=== PATIENT | male | born 1995 | race Caucasian/White ===

== ENCOUNTER 2017-02-16 12:23 | Emergency (ER) | payer SELFPAY ==
[2017-02-16 12:32] VITALS: BP 106/64
[2017-02-16] MEDS ORDERED: BUPIVACAINE HCL 0.5 % INJ/PF 30 ML SDV INJ ONE (12:41)
[2017-02-16] MEDS ORDERED: LIDOCAINE 2% VISCOUS SOLN 20 ML UDCUP PO ONE (12:49)
--- NOTE | 2017-02-16 12:50 | ER Document Report ---
HPI - HPI Pain Level: 5 Notes: Patient is a 19-year-old male who presents the ED complaining of right lower molar #31 pain/fracture that occurred this morning when he was eating a granola bar. Patient states that since then he has had some pain or discomfort without any radiation of the pain. Patient states that he is still able to swallow and breathe without any difficulties. He has not noticed any purulent or bloody discharge. Patient states that he does not have any more insurance so he cannot get seen by a dentist at this time. Denies any headache, fever, URI, sore throat, chest pain, palpitations, syncope, cough, shortness of breath, wheeze, dyspnea, abdominal pain, nausea/vomiting/diarrhea, or rash. - ROS Notes: REVIEW OF SYSTEMS: CONSTITUTIONAL : Denies fever, chills, or sweats. Denies recent illness. EENT: see hpi CARDIOVASCULAR: Denies chest pain. Denies palpitations or racing or irregular heart beat. Denies ankle edema. RESPIRATORY: Denies cough, cold, or chest congestion. Denies shortness of breath, difficulty breathing, or wheezing. GASTROINTESTINAL: Denies abdominal pain or distention. Denies nausea, vomiting , or diarrhea. Denies blood in vomitus, stools, or per rectum. Denies black, tarry stools. Denies constipation. GENITOURINARY: Denies difficulty urinating, painful urination, burning, frequency, blood in urine, or discharge. MUSCULOSKELETAL: Denies back or neck pain or stiffness. Denies joint pain or swelling. SKIN: Denies rash, lesions or sores. NEUROLOGICAL: Denies confusion or altered mental status. Denies passing out or loss of consciousness. Denies dizziness or lightheadedness. Denies headache. Denies weakness or paralysis or loss of use of either side. Denies problems with gait or speech. Denies sensory loss, numbness, or tingling. ALL OTHER SYSTEMS REVIEWED AND NEGATIVE. Dictation was performed using [employer] voice recognition software - CARDIOVASCULAR Cardiovascular: DENIES: Chest pain - DERM Skin Color: Normal Past Medical History - Social History Smoking Status: Current Every Day Smoker Family History: Reviewed & Not Pertinent Patient has suicidal ideation: No Patient has homicidal ideation: No Renal/ Medical History: Denies: Hx Peritoneal Dialysis Musculoskeltal Medical History: Reports Hx Musculoskeletal Deformity, Reports Hx Musculoskeletal Trauma Psychiatric Medical History: Reports: Hx Attention Deficit Hyperactivity Disorder, Hx Bipolar Disorder, Hx Schizophrenia Traumatic Medical History: Reports: Hx Fractures - Right ankle, boxer fracture to right hand, left forearm - Immunizations Immunizations up to date: Yes Hx Diphtheria, Pertussis, Tetanus Vaccination: Yes - 09/24/2006 Vertical Provider Document - CONSTITUTIONAL Agree With Documented VS: Yes Notes: PHYSICAL EXAMINATION: GENERAL: Well-appearing, well-nourished and in no acute distress. HEAD: Atraumatic, normocephalic. EYES: Pupils equal round and reactive to light, extraocular movements intact, sclera anicteric, conjunctiva are normal. ENT: EAC clear b/l. TM's intact b/l without erythema, fluid, or perforation. Nares patent and without discharge. oropharynx clear without exudates. No tonsilar hypertrophy or erythema. Moist mucous membranes. No sinus tenderness. Uvula midline. No palatine shift. No facial swelling. Mouth: + fracture to #31. No abscess or discharge noted. No swelling. No tongue protrusion. NECK: Normal range of motion, supple without lymphadenopathy. No rigidity/ meningismus. LUNGS: Breath sounds clear to auscultation bilaterally and equal. No wheezes rales or rhonchi. HEART: Regular rate and rhythm without murmurs, rubs, gallops. NEUROLOGICAL: Cranial nerves grossly intact. Normal speech, normal gait. Normal sensory, motor exams PSYCH: Normal mood, normal affect. SKIN: Warm, Dry, normal turgor, no rashes or lesions noted. - INFECTION CONTROL TRAVEL OUTSIDE OF THE [place]S. IN LAST 30 DAYS: No - RESPIRATORY O2 Sat by Pulse Oximetry: 97 Course - Re-evaluation Re-evalutation: 02/16/17 12:53 Patient is an afebrile, well-hydrated, 21-year-old male who presents the ED with a fractured tooth #31. Vitals are stable. PE otherwise unremarkable. Patient declined dental block at this time. We will give him viscous lidocaine today and send him home with the rest that he may use as needed. Recommend he moss picker a dental repair kit [id number] and schedule an appoint with a dentist this week. Conservative measures otherwise as needed. Recheck with your PCM this week as well. Return to the ED with any worsening/concerning symptoms otherwise as reviewed discharge. Patient is in agreement. Low suspicion for any meningitis, sepsis, peritonsillar/pharyngeal abscess, respiratory compromise, Kalia's, temporal arteritis, or other emergent systemic condition at this time. Patient is aware this condition can change from initial presentation and he needs to monitor symptoms closely. - Vital Signs Vital signs: Temp Pulse Resp BP Pulse Ox 97.8 F 79 16 106/64 97 02/16/17 12:29 02/16/17 12:29 02/16/17 12:29 02/16/17 12:29 02/16/17 12:29 Discharge - Discharge Clinical Impression: Toothache Condition: Stable Disposition: HOME, SELF-CARE Additional Instructions: Wall and floss twice daily Maintain fluid intake Take antibiotics as directed Mouthwash, salt water gargles, peroxide rinse as needed Tylenol/ibuprofen as needed Recheck with PCM this week Call today/tomorrow and schedule an appointment with your dentist for further evaluation Return to the ED with any worsening symptoms and/or development of fever, headache, facial swelling, swelling of lips/tongue/throat, trouble swallowing, drooling, hoarseness, neck pain/stiffness, chest pain, palpitations, syncope, shortness of breath, trouble breathing, abdominal pain, n/v/d, numbness/tingling , or other worsening symptoms that are concerning to you. TOOTHACHE: Your pain is due to dental decay. The tooth must be repaired in order for you to feel better. You will, therefore, be referred to a dentist. We do not have dentists on the staff at [facility]. Severe swelling or drainage around a tooth usually means a dental abscess. This also requires evaluation and treatment by the dentist, but antibiotics may be prescribed while awaiting dental treatment. You should be rechecked immediately if you develop major swelling of the face, increasing pain, a lump in the jaw or gums, headache, difficulty swallowing, or fever. PENICILLIN V K: You have been given a prescription for Penicillin VK. Your physician has determined that this is the best antibiotic for your condition. Pen VK can be taken with meals, however more of the antibiotic gets into the bloodstream if it's taken on an empty stomach. Penicillin usually has no side effects. However, allergy to penicillins is common. If you have had an allergic reaction to any drug of the penicillin family, you should never take any other penicillin. Notify your doctor at once if you develop hives, itching, swelling, faintness, or shortness of breath. FOLLOW-UP CARE: You have been referred for follow-up care to the dentists listed below. Call the dentists office for an appointment as you were instructed or within the next two days. If you experience worsening or a significant change in your symptoms, notify the physician immediately or return to the Emergency Department at any time for re-evaluation. [facility] [address] [place], [place] Monday mornings, by appointment [facility] [address] [place] [address] [facility] [address] [facility] [address] [facility] Emergency Department [facility] [address] [email or web address] [address] [place] [address] Monday- 8:00am to 5:00 pm Will see patients from other [facility]. Charges based on income and family size and accepts Medicare, Medicaid, and Insurances Will pull molars [facility] [address] Hours of Operation 8:00 am - 4:30 pm weekdays The following dental offices accept Medicaid: [facility] Dr. Goldman Dr. Keen Dr. Lundberg Dr. Reed Robert Nguyen, Brenda, and Hernandez oral surgery Dr. Richards ([place]) Dr. Casiano ([place]) [facility] Drs. Leyva and Erik ([place]) Dr. Batres ([place]) [facility] Dr. Ashby ([place]) Drs. Rivera and ([place]) Medicaid Care Line Prescriptions: Penicillin V Potassium [Penicillin Vk 500 mg Tablet] 500 mg PO BID #20 tablet Forms: Smoking Cessation Education Referrals: [facility] [Provider Group] - Follow up in 1 week
--- NOTE | 2017-02-16 14:56 | ER Document Report ---
ED General - General Chief Complaint: Toothache Stated Complaint: TOOTHACHE Time Seen by Provider: 02/16/17 12:33 Mode of Arrival: Ambulatory Information source: Patient TRAVEL OUTSIDE OF THE [place] IN LAST 30 DAYS: No - Related Data Allergies/Adverse Reactions: tramadol [Tramadol] Allergy (Verified 12/01/15 23:21) Past Medical History - Social History Family History: Reviewed & Not Pertinent Patient has suicidal ideation: No Patient has homicidal ideation: No Renal/ Medical History: Denies: Hx Peritoneal Dialysis Musculoskeltal Medical History: Reports Hx Musculoskeletal Deformity, Reports Hx Musculoskeletal Trauma Psychiatric Medical History: Reports: Hx Attention Deficit Hyperactivity Disorder, Hx Bipolar Disorder, Hx Schizophrenia Traumatic Medical History: Reports: Hx Fractures - Right ankle, boxer fracture to right hand, left forearm - Immunizations Immunizations up to date: Yes Hx Diphtheria, Pertussis, Tetanus Vaccination: Yes - 09/24/2006 Physical Exam - Vital signs Vitals: Temp Pulse Resp BP Pulse Ox 97.8 F 79 16 106/64 97 02/16/17 12:29 02/16/17 12:29 02/16/17 12:29 02/16/17 12:29 02/16/17 12:29 Course - Vital Signs Vital signs: Temp Pulse Resp BP Pulse Ox 97.8 F 79 16 106/64 97 02/16/17 12:29 02/16/17 12:29 02/16/17 12:29 02/16/17 12:29 02/16/17 12:29
== END 2017-02-16 13:06 | disposition home or self-care (01) ==
LOC: ER 12:23
DX: K08.89 Other specified disorders of teeth and supporting structures (principal); F17.200 Nicotine dependence, unspecified, uncomplicated
CPT/HCPCS: 99282; J3490

== ENCOUNTER 2017-03-02 19:10 | Emergency (ER) | payer OTHER ==
--- NOTE | 2017-03-02 20:33 | ER Document Report ---
ED Medical Screen (RME) - General Chief Complaint: EYE TRAUMA Stated Complaint: RIGHT EYE INJURY Time Seen by Provider: 03/02/17 20:32 Notes: Patient states that approximately noon today a nail flew up and down stop of a couple of objects and then hit him in the right eye. He states initially he could see normally out of the eye. He states as the day went on the eye became more painful and swollen and now he can only see shadows with this time. On exam pupils are seen to be equally round and reactive. Extraocular muscles are intact. Patient has normal accommodation. TRAVEL OUTSIDE OF THE [place] IN LAST 30 DAYS: No - Related Data Allergies/Adverse Reactions: tramadol [Tramadol] Allergy (Verified 12/01/15 23:21) Past Medical History Renal/ Medical History: Denies: Hx Peritoneal Dialysis Musculoskeltal Medical History: Reports Hx Musculoskeletal Deformity, Reports Hx Musculoskeletal Trauma Psychiatric Medical History: Reports: Hx Attention Deficit Hyperactivity Disorder, Hx Bipolar Disorder, Hx Schizophrenia Traumatic Medical History: Reports: Hx Fractures - Right ankle, boxer fracture to right hand, left forearm - Immunizations Immunizations up to date: Yes Hx Diphtheria, Pertussis, Tetanus Vaccination: Yes - 09/24/2006 Physical Exam - Vital signs Vitals: Temp Pulse Resp BP Pulse Ox 97.8 F 71 20 115/72 100 03/02/17 20:11 03/02/17 20:11 03/02/17 20:11 03/02/17 20:11 03/02/17 20:11 Course - Vital Signs Vital signs: Temp Pulse Resp BP Pulse Ox 97.8 F 71 20 115/72 100 03/02/17 20:11 03/02/17 20:11 03/02/17 20:11 03/02/17 20:11 03/02/17 20:11
--- NOTE | 2017-03-02 20:57 | ER Document Report ---
ED Eye Complaint - General TRAVEL OUTSIDE OF THE [place].S[place] IN LAST 30 DAYS: No - General Chief Complaint: Eye Injury Stated Complaint: RIGHT EYE INJURY Time Seen by Provider: 03/02/17 20:32 Notes: Patient is a 21-year-old male comes emergency department for chief complaint of right eye pain. He states that he was hammering vinyl and struck a brick underneath the vinyl, causing the nail he was hammering to fly back and strike him in the right eye. He states initially he had blurry vision and pain but this has worsened and now he feels that he can only c-collar out of the right eye. He states he thinks a little bit of blood came out of his eye as well. He denies any other injuries. He does not wear visual correction. He states he is up-to-date on his tetanus within 3 years. He denies any daily medications. (SAM SAINI) - Related Data Allergies/Adverse Reactions: tramadol [Tramadol] Allergy (Verified 12/01/15 23:21) Past Medical History - General Information source: Patient - Social History Smoking Status: Never Smoker Drug Abuse: None Lives with: Family Family History: Reviewed & Not Pertinent Patient has suicidal ideation: No Patient has homicidal ideation: No Renal/ Medical History: Denies: Hx Peritoneal Dialysis Musculoskeltal Medical History: Reports Hx Musculoskeletal Deformity, Reports Hx Musculoskeletal Trauma Psychiatric Medical History: Reports: Hx Attention Deficit Hyperactivity Disorder, Hx Bipolar Disorder, Hx Schizophrenia Traumatic Medical History: Reports: Hx Fractures - Right ankle, boxer fracture to right hand, left forearm Surgical Hx: Negative - Immunizations Immunizations up to date: Yes Hx Diphtheria, Pertussis, Tetanus Vaccination: Yes - 09/24/2006 Review of Systems - Review of Systems Constitutional: No symptoms reported EENT: See HPI Cardiovascular: No symptoms reported Respiratory: No symptoms reported Gastrointestinal: No symptoms reported Genitourinary: No symptoms reported Male Genitourinary: No symptoms reported Musculoskeletal: No symptoms reported Skin: No symptoms reported Hematologic/Lymphatic: No symptoms reported Neurological/Psychological: No symptoms reported Physical Exam - Vital signs Interpretation: Normal - General General appearance: Other - Patient holding his hand over his right eye, however he does not appear to be in distress - HEENT Head: Normocephalic, Atraumatic Eyes: Other - Mild swelling of the eyelids of the right eye Conjunctiva: Normal Cornea: Normal, Other - Small amount of fluorescein uptake in the sclera adjacent to the cornea, no abnormalities noted with the cornea. No: Corneal abrasion, Corneal ulcer, Dendrite, Embedded foreign body, Flourescein stain uptake, Opacified, Superficial foreign body Extraocular movements intact: Yes Eyelashes: Normal Pupils: PERRL Corrective lenses worn: No Anterior chamber: Normal. No: Hyphema Nerve palsy: No Visual rizvi normal: Yes Ears: Normal Sinus: Normal Nasal: Normal Mouth/Lips: Normal Mucous membranes: Normal Pharynx: Normal Neck: Normal - Respiratory Respiratory status: No respiratory distress Chest status: Nontender Breath sounds: Normal. No: Decreased air movement, Wheezing Chest palpation: Normal - Cardiovascular Rhythm: Regular. No: Tachycardia Heart sounds: Normal auscultation, S1 appreciated, S2 appreciated Murmur: No - Abdominal Inspection: Normal Distension: No distension Bowel sounds: Normal Tenderness: Nontender. No: Tender, Guarding Organomegaly: No organomegaly - Back Back: Normal. No: Tender - Extremities General upper extremity: Normal inspection, Nontender, Normal ROM, Normal strength General lower extremity: Normal inspection, Nontender, Normal ROM, Normal strength - Neurological Neuro grossly intact: Yes Cognition: Normal Orientation: AAOx4 Thom Coma Scale Eye Opening: Spontaneous [place] Coma Scale Verbal: Oriented [place] Coma Scale Motor: Obeys Commands Thom Coma Scale Total: 15 Speech: Normal Motor strength normal: LUE, RUE, LLE, RLE Sensory: Normal - Psychological Associated symptoms: Normal affect, Normal mood - Skin Skin Temperature: Warm Skin Moisture: Dry Skin Color: Normal - Vital signs Vitals: Temp Pulse Resp BP Pulse Ox 97.8 F 71 20 115/72 100 03/02/17 20:11 03/02/17 20:11 03/02/17 20:11 03/02/17 20:11 03/02/17 20:11 Course - Re-evaluation Re-evalutation: 03/02/17 22:51 Patient was initially seen by the physician's professional nursing assistant, Sam Saini. Patient was hammering a nail actually came up and hit him in the right eye. He therefore did fluorescein staining as well as check pressures under the slit lamp examination. Patient does have a abrasion over the conjunctival without Anusha sign. There is no sign of globe rupture. The only concern is that he continues to have blurred vision in the right eye. I therefore did a bedside ultrasound which was normal. I also did a slit-lamp examination myself and saw no evidence of globe rupture. Pupils normal in size. I do not see a hyphema. I will have him free on to call the tierce filler director utilization management to discuss with them close follow-up versus other treatment options. Dictation of this chart was performed using voice recognition software; therefore, there may be some unintended grammatical errors. (COLE BARKER) Patient has normal EOMs, visual rizvi are intact, he states he cannot see anything but color but actually describes what he is seeing to me while he is repeating this. For example he was telling me that the gloves in the room are blue. He does have puffy eyelids and clear discharge. No bleeding noted. No evidence of globe disruption. No hyphema. On fluorescein staining of the I do see a tiny abrasion over the right sclera, examination of the cornea is normal, no foreign bodies under the eyelids or embedded, normal anterior chamber, normal pupil. I did check pressures and the pressure in the right eye is not significantly different from the left and the pressure is 19 with 95% confidence. Patient does not appear to be in distress. I did ask Dr. Barker to come to the bedside, he performed an ultrasound and evaluated the eye under slit lamp with no additional concerning findings. He recommends ophthalmology consult. Spoke with Dr. Ortiz, Ophthalmology at [facility]. He recommends that because patient does not have change in pigment over the cornea or sclera, he has normal pressure, he has a normal pupil, and he has no hyphema that he is cleared to follow-up with ophthalmology tomorrow. Patient also given antibiotic eyedrop. He states we can perform an x-ray but this is optional ( looking for foreign body). I recommended the x-ray to the patient but he declined. Patient referred to local ophthalmology to follow-up tomorrow, given antibiotic eyedrops, discussed return precautions. Patient and relatives state understanding and agreement. (SAM SAINI) - Vital Signs Vital signs: Temp Pulse Resp BP Pulse Ox 97.7 F 75 18 121/79 97 03/02/17 23:49 03/02/17 23:49 03/02/17 23:49 03/02/17 23:49 03/02/17 23:49 Discharge - Discharge Clinical Impression: Right eye injury Qualifiers: Encounter type: initial encounter Qualified Code(s): S05.91XA - Unspecified injury of right eye and orbit, initial encounter Condition: Stable Disposition: HOME, SELF-CARE Additional Instructions: Exam shows a very small abrasion to the sclera, the white part of your eye, no other abnormalities are seen. Recommendation is for you to follow-up tomorrow with ophthalmology, see referral. Return immediately if you develop any concerning symptoms including loss of vision, swelling of the eye, discolored discharge, or any other concerning symptoms. Apply ointment to the eye 6 times a day for 7 days. Forms: Return to Work Referrals: MORGAN SOSA MD [ACTIVE STAFF] - 03/03/17
[2017-03-02] MEDS ORDERED: POLYMYXIN B SULFATE/TMP OPH SOLN 10 ML OD ONE (22:28)
[2017-03-02] MEDS ORDERED: HYDROCODONE/ACETAMINOPHEN 5-325 MG 6 TAB/DSPK PO PRN (23:16)
[2017-03-02] MEDS ORDERED: ERYTHROMYCIN 0.5% OPH OINTMENT 3.5 GM TUBE OD ONE (23:39)
[2017-03-02] MEDS ORDERED: ERYTHROMYCIN 0.5% OPH OINT 1 GM UNIT DOSE OD ONE (23:44)
[2017-03-02 23:51] VITALS: BP 121/79
== END 2017-03-02 23:49 | disposition home or self-care (01) ==
LOC: ER 19:10
DX: S05.91XA Unspecified injury of right eye and orbit, initial encounter (principal); W20.8XXA Other cause of strike by thrown, projected or falling object, initial encounter; Y93.H3 Activity, building and construction; Y99.0 Civilian activity done for income or pay; H53.8 Other visual disturbances
CPT/HCPCS: 99283; J3490

== ENCOUNTER 2017-04-17 21:22 | Emergency (ER) | payer SELFPAY ==
[2017-04-17 22:47] VITALS: BP 131/81
== END 2017-04-17 23:00 | disposition left against medical advice (07) ==
LOC: ER 21:22
DX: Z53.21 Procedure and treatment not carried out due to patient leaving prior to being seen by health care provider (principal)

== ENCOUNTER 2018-01-31 19:02 | Emergency (ER) | payer SELFPAY ==
[2018-01-31 19:12] VITALS: BP 114/66
[2018-01-31] MEDS ORDERED: KETOROLAC TROMETHAMINE 60 MG/2 ML SDV IM ONE (20:12)
[2018-01-31] MEDS ORDERED: DEXAMETHASONE SOD PHOS INJ 10 MG/1 ML VIAL IM ONE (20:12)
[2018-01-31] MEDS ORDERED: LIDOCAINE 5% (700 MG) TRANSDERMAL ADH..PATCH TP ONE (20:24)
--- NOTE | 2018-01-31 20:31 | ER Document Report ---
ED Neck/Back Problem - General Chief Complaint: Back Pain Stated Complaint: BACK PAIN Time Seen by Provider: 01/31/18 19:42 Mode of Arrival: Ambulatory Information source: Patient Notes: 22-year-old male presents to ED for complaint of back pain to the lower back bilaterally since 4 days ago he was lifting furniture. He states the pain has been shooting down both legs on both sides of his lower back. Patient states he has been trying to take ibuprofen and Aleve with no relief. He is also been taking Tylenol thousand milligrams with no relief. He states he has not used any hot or cold as yet. He states he smokes a pack a day does not drink or do any drugs. 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 TRAVEL OUTSIDE OF THE [place] IN LAST 30 DAYS: No - HPI Patient complains to provider of: Lower back Onset: Other - 4 days Where: Home Onset: Gradual Timing: Still present Quality of pain: Achy, Sharp Severity: Severe Pain Level: 5 Context: Lifting, Turning Recent injury: Possibly Associated symptoms: Radiation to leg, Lower back pain. denies: Radiation to chest, Sensory loss, Sweaty, Unable to urinate Exacerbated by: Movement of trunk Relieved by: Nothing Similar symptoms previously: Yes Recently seen / treated by doctor: No - Related Data Allergies/Adverse Reactions: tramadol [Tramadol] Allergy (Verified 01/31/18 19:03) Past Medical History - General Information source: Patient - Social History Smoking Status: Current Every Day Smoker Cigarette use (# per day): Yes - ppd Chew tobacco use (# tins/day): No Smoking Education Provided: Yes - 4 min Frequency of alcohol use: None Drug Abuse: None Occupation: [employer] Lives with: Spouse/Significant other Family History: Reviewed & Not Pertinent Patient has suicidal ideation: No Patient has homicidal ideation: No - Past Medical History Cardiac Medical History: Reports: None Pulmonary Medical History: Reports: None EENT Medical History: Reports: None Neurological Medical History: Reports: None Endocrine Medical History: Reports: None Renal/ Medical History: Reports: None Malignancy Medical History: Reports None GI Medical History: Reports: None Musculoskeletal Medical History: Reports Hx Musculoskeletal Deformity, Reports Hx Musculoskeletal Trauma Skin Medical History: Reports None Psychiatric Medical History: Reports: Hx Attention Deficit Hyperactivity Disorder, Hx Bipolar Disorder, Hx Schizophrenia Traumatic Medical History: Reports: Hx Fractures - Right ankle, boxer fracture to right hand, left forearm Infectious Medical History: Reports: None Surgical Hx: Negative - Immunizations Immunizations up to date: Yes Hx Diphtheria, Pertussis, Tetanus Vaccination: Yes - 09/24/2006 Review of Systems - Review of Systems Constitutional: No symptoms reported EENT: No symptoms reported Cardiovascular: No symptoms reported Respiratory: No symptoms reported Gastrointestinal: No symptoms reported Genitourinary: No symptoms reported Male Genitourinary: No symptoms reported Musculoskeletal: Back pain, Muscle pain, Muscle stiffness Skin: No symptoms reported Hematologic/Lymphatic: No symptoms reported Neurological/Psychological: No symptoms reported -: Yes All other systems reviewed and negative Physical Exam - Vital signs Vitals: Temp Pulse Resp BP Pulse Ox 98.1 F 96 16 114/66 97 01/31/18 19:10 01/31/18 19:10 01/31/18 19:10 01/31/18 19:10 01/31/18 19:10 Interpretation: Normal - General General appearance: Appears well, Alert - HEENT Head: Normocephalic, Atraumatic Eyes: Normal Pupils: PERRL - Respiratory Respiratory status: No respiratory distress Chest status: Nontender Breath sounds: Normal Chest palpation: Normal - Cardiovascular Rhythm: Regular Heart sounds: Normal auscultation Murmur: No - Abdominal Inspection: Normal Distension: No distension Bowel sounds: Normal Tenderness: Nontender Organomegaly: No organomegaly - Back Back: Normal, Tender - Bilateral lower back pain down to the buttocks and down both legs. No: Vertebra tenderness - Extremities General upper extremity: Normal inspection, Nontender, Normal color, Normal ROM , Normal temperature General lower extremity: Normal inspection, Nontender, Normal color, Normal ROM , Normal temperature, Normal weight bearing. No: Antonio's sign - Neurological Neuro grossly intact: Yes Cognition: Normal Orientation: AAOx4 Thom Coma Scale Eye Opening: Spontaneous Thom Coma Scale Verbal: Oriented Thom Coma Scale Motor: Obeys Commands Thom Coma Scale Total: 15 Speech: Normal Motor strength normal: LUE, RUE, LLE, RLE Sensory: Normal - Psychological Associated symptoms: Normal affect, Normal mood - Skin Skin Temperature: Warm Skin Moisture: Dry Skin Color: Normal Course - Re-evaluation Re-evalutation: 01/31/18 20:58 Patient was treated with Toradol, Decadron, and Lidoderm patch in the emergency room. He was discharged home with prescription for naproxen prednisone and Robaxin. These medications were discussed with patient and then he decided he needed to speak with another provider. Dr. Yanes went in and is spoke with patient. Patient then agreed to take these medications and follow the same treatment plan as previously discussed with him. Patient was given instructions for hot packs cold packs and stretching exercises. Patient to follow-up with primary doctor and to get a referral for a back specialist. After performing a Medical Screening Examination, I estimate there is LOW risk for EXPANDING OR RUPTURED ABDOMINAL AORTIC ANEURYSM, CAUDA EQUINA SYNDROME, EPIDURAL MASS LESION, or HERNIATED DISK CAUSING SEVERE SPINAL STENOSIS, thus I consider the discharge disposition reasonable. I have reevaluated this patient multiple times and no significant life threatening changes are noted. The patient and I have discussed the diagnosis and risks, and we agree with discharging home and close follow-up. We also discussed returning to the Emergency Department immediately if new or worsening symptoms occur with the understanding that symptoms and presentations can change. We have discussed the symptoms which are most concerning (e.g., saddle anesthesia, urinary or bowel incontinence or retention, changing or worsening pain) that necessitate immediate return. - Vital Signs Vital signs: Temp Pulse Resp BP Pulse Ox 98.1 F 96 16 114/66 97 01/31/18 19:10 01/31/18 19:10 01/31/18 19:10 01/31/18 19:10 01/31/18 19:10 Discharge - Discharge Clinical Impression: Back pain Qualifiers: Back pain location: low back pain Chronicity: acute Back pain laterality: bilateral Sciatica presence: with sciatica Sciatica laterality: bilateral sciatica Qualified Code(s): M54.42 - Lumbago with sciatica, left side Condition: Stable Disposition: HOME, SELF-CARE Instructions: Family Physicians / Practices Additional Instructions: LOW BACK PAIN: Three out of every four people will have an episode of disabling back pain during their lifetime. Most commonly the pain is due to straining of the muscles and ligaments in the low back. Usual treatment includes: (1) Rest on a firm surface. Avoid lying on your stomach. (2) Ice pack the painful area. After a few days, gentle heat may be used intermittently to relax the area, or ice packs can be continued. (3) Medication may be needed -- muscle relaxers and antiinflammatory medicines are commonly used. (4) As the back improves, exercises are prescribed to strengthen the back and abdominal muscles. Your doctor will advise you on the proper care for your back at each stage in your recovery. You may be better in a few days -- or healing may take several weeks. If new symptoms of a "herniated disc" (radiation of pain, numbness, or tingling down the back of the leg or weakness in the leg) occur, you should be re-examined. Further testing may be necessary. STEROID MEDICATION: You have been given an injection of medicine of the cortisone/steroid class. This medication is used to control inflammation or allergy. It is often continued as a pill for a short period of time, until the acute process subsides. There are usually no side effects from short-term use of cortisone-like medications. Some persons feel an increased sense of well-being and are not sleepy at bedtime. Long-term use of cortisone medications is best avoided, unless required for a severe condition. If your condition does not remit, or relapses after the course of corticosteroid medication, you should consult your physician. STEROID MEDICATION: You have been given a medicine of the cortisone/steroid class. This medication is used to control inflammation or allergy. It is usually only given for a short period of time, until the acute process subsides. There are usually no side effects from short-term use of cortisone-like medications. Some persons feel an increased sense of well-being and are not sleepy at bedtime. Long-term use of cortisone medications is best avoided, unless required for a severe condition. If your condition does not remit, or relapses after the course of corticosteroid medication, you should consult your physician. Toradol Injection You have been given an injection of ketorolac tromethamine (Toradol). This is an excellent, safe drug for pain control. It also has potent antiinflammatory action. You should have significant pain relief within about one hour. Toradol is not addicting and is non-sedating. It does not interfere with driving or work. Call or return if you develop itching, hives, shortness of breath, or rash. Stretching Exercises for the Back The physician has recommended that you begin stretching exercises for your back. These are often used even while the back is painful. However, you should notify the physician if the activities seem to increase your pain. PELVIC TILT: Lie flat on your back with knees bent. Tighten your stomach and buttock muscles so it flattens your lower back against the floor. Hold 10 seconds. Repeat 10 times, twice daily. KNEE RAISE: Lying on the back with knees bent, raise one knee to your chest, then the other. Hold both knees against the chest 10 seconds, then lower one knee at a time. Repeat 10 times, twice daily. PARTIAL TRUNK RAISE: Lie face down, arms at your sides. Keeping your waist on the floor, use your arms raise your chest up. Support yourself on your elbows for 30 seconds. Repeat twice daily, increasing the time to two minutes as you recover. MUSCLE RELAXERS: Muscle relaxing medications are usually prescribed for acute muscle spasm or injury to the neck and back. They are often combined with antiinflammatory pain medication for increased relief. You may stop the muscle relaxer when the pain and stiffness have improved. Start the medication again if spasms recur. Muscle relaxers may cause drowsiness, especially with the first dose. Do not operate machinery or drive while under the effects of the medication. Most muscle relaxers last up to 24 hours. Do not combine the medication with alcohol. ICE PACKS: Apply ice packs frequently against the painful area. Many different schedules are recommended, such as "20 minutes on, 20 minutes off" or "one hour ice, two hours rest." If you need to work, you may need to go longer between ice treatments. You should plan to have the area ice packed AT LEAST one fourth of the time. The ice should be applied over the wrap, tape, or splint, or over a layer of cloth -- not directly against the skin. Some ice bags have a built-in cloth and can be put directly on the skin. WARM PACKS: After approximately two days, apply gentle heat (such as a heating pad or hot water bottle) for about 20 to 30 minutes about every two hours -- at least four times daily. Warmth and elevation will help you make a more rapid recovery , and will ease the pain considerably. Do not use HOT heat, and never apply heat for longer than 30 minutes. The continuous heat can invisibly damage skin and muscles -- even when no burn is seen on the surface. Damaged muscles can make you MORE sore. He was treated with an Lidoderm patch in the emergency room. This needs to be removed in 12 hours. Then you need to wait at least 8 hours before using the Aspercreme. FOLLOW-UP CARE: If you have been referred to a physician for follow-up care, call the physician s office for an appointment as you were instructed or within the next two days. If you experience worsening or a significant change in your symptoms, notify the physician immediately or return to the Emergency Department at any time for re-evaluation. Prescriptions: Methocarbamol [Robaxin 500 mg Tablet] 500 mg PO BID #20 tablet Naproxen 500 mg PO BID #20 tablet Prednisone [Deltasone 20 mg Tablet] 3 tab PO DAILY 5 Days tablet Forms: Special Work Note, Smoking Cessation Education
== END 2018-01-31 20:42 | disposition home or self-care (01) ==
LOC: ER 19:02
DX: M54.42 Lumbago with sciatica, left side (principal); M54.41 Lumbago with sciatica, right side; X50.0XXA Overexertion from strenuous movement or load, initial encounter; Y92.009 Unspecified place in unspecified non-institutional (private) residence as the place of occurrence of the external cause; F17.210 Nicotine dependence, cigarettes, uncomplicated; Z71.6 Tobacco abuse counseling; Z88.5 Allergy status to narcotic agent
CPT/HCPCS: 99406; 99283; 96372; J1885; J1100

== ENCOUNTER 2018-02-25 20:59 | Emergency (ER) | payer SELFPAY ==
[2018-02-25 21:13] VITALS: BP 113/76
== END 2018-02-25 21:25 | disposition left against medical advice (07) ==
LOC: ER 20:59
DX: Z53.21 Procedure and treatment not carried out due to patient leaving prior to being seen by health care provider (principal)

== ENCOUNTER 2018-03-06 04:39 | Emergency (ER) | payer SELFPAY ==
[2018-03-06 05:18] LABS: ABSOLUTE EOSINOPHILS # (AUTO) 0.1 10^3/uL (0.0-0.6); ABSOLUTE MONOCYTES (AUTO) 1.1 10^3/uL (0.1-1.4); ABSOLUTE NEUT (AUTO) 9.1 10^3/uL (1.7-8.2); BASOPHILS % (AUTO) 0.3 % (0-2); EOSINOPHILS % (AUTO) 0.6 % (0-6); HEMATOCRIT 41.2 % (37.9-51.0); LYMPHOCYTES % (AUTO) 8.9 % (13-45); MEAN CORPUSCULAR HEMOGLOBIN 31.1 pg (27.0-33.4); MEAN CORPUSCULAR HGB CONC 33.9 g/dL (32.0-36.0); MEAN CORPUSCULAR VOLUME 92 fl (80-97); MONOCYTES % (AUTO) 9.6 % (3-13); PLATELET COUNT 251 10^3/uL (150-450); RED CELL DISTRIBUTION WIDTH 13.4 % (11.5-14.0); SEGMENTED NEUTROPHILS % (AUTO) 80.6 % (42-78); TOTAL CELLS COUNTED % (AUTO) 100 %; WHITE BLOOD COUNT 11.3 10^3/uL (4.0-10.5)
[2018-03-06 05:23] LABS: APPEARANCE,URINE SLIGHTLY-CLOUDY; BILIRUBIN,URINE NEGATIVE (NEGATIVE); GLUCOSE, URINE NEGATIVE (NEGATIVE); KETONES,URINE TRACE mg/dL (NEGATIVE); LEUKOCYTE ESTERASE,URINE SMALL (NEGATIVE); NITRITE,URINE NEGATIVE (NEGATIVE); PROTEIN,URINE 100 mg/dL (NEGATIVE); URINE SPECIFIC GRAVITY 1.029
[2018-03-06 05:24] LABS: COLOR,URINE YELLOW
[2018-03-06 05:30] LABS: ALANINE AMINOTRANSFERASE 22 U/L (21-72); ALBUMIN 4.2 g/dL (3.5-5.0); ALKALINE PHOSPHATASE 51 U/L (38-126); ANION GAP 10 (5-19); ASPARTATE AMINO TRANSFERASE 25 U/L (17-59); BILIRUBIN,DIRECT 0.2 mg/dL (0.0-0.4); BILIRUBIN,TOTAL 0.6 mg/dL (0.2-1.3); BLOOD UREA NITROGEN 11 mg/dL (7-20); CALCIUM 9.9 mg/dL (8.4-10.2); CARBON DIOXIDE 26 mmol/L (22-30); CHLORIDE 107 mmol/L (98-107); GLUCOSE 77 mg/dL (75-110); POTASSIUM 3.7 mmol/L (3.6-5.0); SODIUM 142.6 mmol/L (137-145); TOTAL PROTEIN 7.1 g/dL (6.3-8.2)
[2018-03-06 05:34] LABS: ACETAMINOPHEN < 10 ug/mL (10-30); ALCOHOL < 10 mg/dL (NONE DETECTED); SALICYLATE < 1.0 mg/dL (2.0-20.0)
[2018-03-06 06:12] LABS: URINE AMPHETAMINES SCREEN NEGATIVE; URINE BARBITURATES SCREEN NEGATIVE; URINE BENZODIAZEPINES SCREEN NEGATIVE; URINE COCAINE SCREEN NEGATIVE; URINE MARIJUANA (THC) SCREEN UNCONFIRMED POSITIVE; URINE METHADONE SCREEN NEGATIVE; URINE PHENCYCLIDINE SCREEN NEGATIVE
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
--- NOTE | 2018-03-06 09:26 | EKG REPORT ---
SEVERITY:- ABNORMAL ECG - SINUS RHYTHM RIGHT ATRIAL ABNORMALITY ST ELEV, PROBABLE NORMAL EARLY REPOL PATTERN : Confirmed by: Katherine Nails 06-Mar-2018 09:25:40
[2018-03-06 09:52] VITALS: BP 115/70
== END 2018-03-06 09:52 | disposition home or self-care (01) ==
LOC: ER 04:39
DX: F31.9 Bipolar disorder, unspecified (principal); R45.851 Suicidal ideations; S60.222A Contusion of left hand, initial encounter; S60.221A Contusion of right hand, initial encounter; W22.01XA Walked into wall, initial encounter; Y93.9 Activity, unspecified; F17.200 Nicotine dependence, unspecified, uncomplicated; F19.10 Other psychoactive substance abuse, uncomplicated; F12.10 Cannabis abuse, uncomplicated; Z88.5 Allergy status to narcotic agent; Z63.0 Problems in relationship with spouse or partner
CPT/HCPCS: 36415; 80053; 80307; 81001; 85025; 93005; 93010; 99285

== ENCOUNTER 2018-06-02 22:30 | Emergency (ER) | payer SELFPAY ==
--- NOTE | 2018-06-02 23:27 | ER Document Report ---
ED Hand/Wrist Injury - General Chief Complaint: Thumb Injury Stated Complaint: THUMB PAIN Time Seen by Provider: 06/02/18 23:07 Notes: 23-year-old male presents to the emergency department for a left thumb injury after wrestling with his fiance and falling off the bed and landing on it on the floor. He says he kind of rolled off the bed and his hand was in a closed position with his body weight landing on it. He states he heard a "pop" and had immediate pain. He initially thought he jammed it and attempted to have his dad pull on it thinking it would put it back in place but it made the pain worse. He is unable to move the DIP of his thumb. He endorses swelling of the thenar eminence and over the metacarpal of his thumb and DIP. he denies any fevers, chills, nausea, vomiting. He denies any other injuries in any other joints. TRAVEL OUTSIDE OF THE [place] IN LAST 30 DAYS: No - Related Data Allergies/Adverse Reactions: tramadol [Tramadol] Allergy (Verified 01/31/18 19:03) Past Medical History - General Information source: Patient - Social History Smoking Status: Current Every Day Smoker Chew tobacco use (# tins/day): No Frequency of alcohol use: Occasional Drug Abuse: None Family History: Reviewed & Not Pertinent Patient has suicidal ideation: No Patient has homicidal ideation: No Renal/ Medical History: Denies: Hx Peritoneal Dialysis Musculoskeletal Medical History: Reports Hx Musculoskeletal Deformity, Reports Hx Musculoskeletal Trauma Psychiatric Medical History: Reports: Hx Attention Deficit Hyperactivity Disorder, Hx Bipolar Disorder, Hx Schizophrenia Traumatic Medical History: Reports: Hx Fractures - Right ankle, boxer fracture to right hand, left forearm - Immunizations Immunizations up to date: Yes Hx Diphtheria, Pertussis, Tetanus Vaccination: Yes - 09/24/2006 Review of Systems - Review of Systems Constitutional: See HPI EENT: No symptoms reported Cardiovascular: No symptoms reported Respiratory: No symptoms reported Gastrointestinal: See HPI Genitourinary: No symptoms reported Male Genitourinary: No symptoms reported Musculoskeletal: See HPI Skin: No symptoms reported Hematologic/Lymphatic: No symptoms reported Neurological/Psychological: No symptoms reported Physical Exam - Vital signs Vitals: Temp Pulse Resp BP Pulse Ox 98.4 F 83 16 109/68 96 06/02/18 22:45 06/02/18 22:45 06/02/18 22:45 06/02/18 22:45 06/02/18 22:45 - Notes Notes: Reviewed vital signs and nursing note as charted by RN. CONSTITUTIONAL: Well-appearing, well-nourished, acting appropriately for age HEAD: Normocephalic, atraumatic, no swelling EYES: PERRL, Conjunctivae clear, no drainage, EOMI, no scleral icterus ENT: External ears without lesions, airway patent, mucous membranes pink and moist NECK: Supple, no masses CARD: Regular rate and rhythm, no murmurs, no rubs, no gallops, capillary refill < 2 seconds, symmetric pulses RESP: The lungs are clear to auscultation bilaterally, no wheezing, no rales, no rhonchi. Respiratory rate and effort are normal, normal chest excursion. No respiratory distress, no retractions, no stridor, no nasal flaring, no accessory muscle use. ABD/GI: Normal bowel sounds, non-distended, soft, non-tender, no rebound, no guarding, no palpable organomegaly EXT: Normal range of motion left elbow. Very limited range of motion of the left metacarpal of the thumb exquisite tenderness to palpation. Positive snuffbox tenderness. Unable to move DIP of left thumb. Normal neurovascular exam. SKIN: Normal color for age and race, warm, dry, good turgor, no acute lesions noted NEURO: No facial asymmetry, moves all extremities equally, motor and sensory function intact Course - Re-evaluation Re-evalutation: 06/02/18 23:30 23-year-old male who states that he is "prone to accidents" presents for thumb pain after a fall. He says he heard a pop when it hit, has positive snuffbox tenderness and is unable to flex his DIP. He has very minimal movement at the metacarpal of the left thumb. He denies a hyperextension injury. Plan is to x- ray the left hand and placed in a thumb spica with referral to orthopedics. 06/03/18 00:11 X-ray showed evidence of a "jama" that could represent ulnar collateral ligament damage consistent with a "gamekeeper's thumb". This does not management expert, he will be placed in a thumb spica and referred to orthopedics. - Vital Signs Vital signs: Temp Pulse Resp BP Pulse Ox 98.4 F 83 16 109/68 96 06/02/18 22:45 06/02/18 22:45 06/02/18 22:45 06/02/18 22:45 06/02/18 22:45 Discharge - Discharge Clinical Impression: Gamekeeper's thumb of left hand Qualifiers: Encounter type: initial encounter Qualified Code(s): S53.32XA - Traumatic rupture of left ulnar collateral ligament, initial encounter Disposition: HOME, SELF-CARE Additional Instructions: You were seen in the emergency department this evening for an ulnar collateral ligament injury, also known as a gamekeeper's thumb. You are placed in a thumb spica splint and you should follow-up with orthopedics on Monday for definitive care. You were given the information for referral. Please keep the splint dry. You can take Tylenol 1000 mg 4 times per day and Motrin 600 mg 4 times per day for pain. You can take them together. If you lose sensation in your thumb, your thumb turns blue, he develop a fever, or you have any other concerns please immediately return to the emergency department. Referrals: JEWEL PUGA, [ACTIVE STAFF] - Follow up as needed
[2018-06-02] MEDS ORDERED: IBUPROFEN 600 MG TABLET PO ONE (23:31)
[2018-06-02] MEDS ORDERED: ACETAMINOPHEN 325 MG TABLET PO ONE (23:31)
--- NOTE | 2018-06-03 00:03 | RADIOLOGY REPORT (SQ) ---
EXAM DESCRIPTION: XR HAND 3 OR MORE VIEWS COMPLETED DATE/TME: 06/02/2018 23:31 CLINICAL HISTORY: 23 years Male, fall COMPARISON: None. Findings: Alfonso sized calcification at the ulnar aspect of the left first proximal phalangeal base may indicate avulsive injury with sprain or tear of the ulnar collateral ligament, "gamekeeper's/skier's thumb," on one view. Bones, joints, and soft tissues of the LEFT XR HAND 3 VIEWS appear otherwise intact. IMPRESSION: Alfonso sized calcification at the ulnar aspect of the left first proximal phalangeal base suggestive of avulsive injury/tear of the left first metacarpophalangeal ulnar collateral ligament, "gamekeeper's/skier's thumb".
[2018-06-03 01:07] VITALS: BP 110/66
== END 2018-06-03 00:29 | disposition home or self-care (01) ==
LOC: ER 22:30
DX: S53.32XA Traumatic rupture of left ulnar collateral ligament, initial encounter (principal); W06.XXXA Fall from bed, initial encounter; Y93.72 Activity, wrestling; F17.200 Nicotine dependence, unspecified, uncomplicated; Z88.5 Allergy status to narcotic agent
CPT/HCPCS: 99283

== ENCOUNTER 2019-01-01 19:49 | Emergency (ER) | payer SELFPAY ==
[2019-01-02] MEDS ORDERED: HYDROCODONE/ACETAMINOPHEN 5-325 MG (6 TAB/ER DISP) PO PRN (00:37)
--- NOTE | 2019-01-02 00:42 | ER Document Report ---
ED General - General Chief Complaint: Toothache Stated Complaint: MOUTH PAIN Time Seen by Provider: 01/01/19 23:12 TRAVEL OUTSIDE OF THE [place] IN LAST 30 DAYS: No - HPI Notes: 23-year-old male to the emergency department with complaints of several broken teeth on the left lower and left upper side and progressively worsening dental pain for the past week. States over 27 December holiday, he was eating and several teeth broke. He has a plan to see his dentist next week but over the past 2 days he has gotten progressively worse with his pain. States this morning he woke up and he felt like he had some tenderness and swelling to his face. He denies any fevers, chills, drooling, shortness of breath, difficulty swallowing. He states that he has been taking 800 mg Motrin which was initially helping but now it no longer does. He smokes. - Related Data Allergies/Adverse Reactions: tramadol [Tramadol] Allergy (Verified 01/01/19 20:14) Past Medical History - General Information source: Patient - Social History Smoking Status: Current Every Day Smoker Frequency of alcohol use: Occasional Drug Abuse: None Family History: Reviewed & Not Pertinent Renal/ Medical History: Denies: Hx Peritoneal Dialysis Musculoskeletal Medical History: Reports Hx Musculoskeletal Deformity, Reports Hx Musculoskeletal Trauma Psychiatric Medical History: Reports: Hx Attention Deficit Hyperactivity Disorder, Hx Bipolar Disorder, Hx Schizophrenia Traumatic Medical History: Reports: Hx Fractures - Right ankle, boxer fracture to right hand, left forearm - Immunizations Immunizations up to date: Yes Hx Diphtheria, Pertussis, Tetanus Vaccination: Yes - 09/24/2006 Review of Systems - Review of Systems Constitutional: denies: Chills, Fever EENT: Dental problem. denies: Throat pain, Difficulty swallowing Cardiovascular: denies: Chest pain, Syncope, Dizziness, Lightheaded Respiratory: denies: Cough, Short of breath Gastrointestinal: denies: Abdominal pain, Diarrhea, Nausea, Vomiting Skin: No symptoms reported Neurological/Psychological: Headaches -: Yes All other systems reviewed and negative Physical Exam - Vital signs Vitals: Temp Pulse Resp BP Pulse Ox 98.2 F 88 20 112/70 98 01/01/19 20:20 01/01/19 20:20 01/01/19 20:20 01/01/19 20:20 01/01/19 20:20 Interpretation: Normal - General General appearance: Appears well In distress: None - HEENT Head: Normocephalic Eyes: Normal Conjunctiva: Normal Pupils: PERRL Ears: Normal External canal: Normal Tympanic membrane: Normal Mouth/Lips: Caries, Dental fracture - There are several broken teeth in the mouth and several teeth with severe dental caries. Several of the teeth are decayed are broken off to the gumline. There is tenderness to palpation to teeth 17-19 with noted gum edema and erythema. There is no appreciable fluct uant abscess. There is no Kalia's angina. Is no drooling and the airway is patent Mucous membranes: Normal Pharynx: Normal - .. No: Uvular edema, Potential airway comprom. Neck: Normal - Respiratory Respiratory status: No respiratory distress Chest status: Nontender Breath sounds: Normal Chest palpation: Normal - Cardiovascular Rhythm: Regular Heart sounds: Normal auscultation Murmur: No - Neurological Neuro grossly intact: Yes Cognition: Normal Orientation: AAOx4 Thom Coma Scale Eye Opening: Spontaneous Thom Coma Scale Verbal: Oriented Beaumont Coma Scale Motor: Obeys Commands Beaumont Coma Scale Total: 15 Speech: Normal Motor strength normal: LUE, RUE, LLE, RLE Sensory: Normal - Psychological Associated symptoms: Normal affect, Normal mood - Skin Skin Temperature: Warm Skin Moisture: Dry Skin Color: Normal Course - Re-evaluation Re-evalutation: Impression: Dental caries, dental pain, several broken teeth that occurred last week. Will place patient on antibiotics as I suspect he has an evolving dental infection. We will send home a short course of pain medicines. And have encouraged him to follow-up with his dentist sooner than next week. He agrees with the plan. Encouraged him to return if any fevers, facial swelling, difficulty swallowing, shortness of breath, drooling, inability to open mouth - Vital Signs Vital signs: Temp Pulse Resp BP Pulse Ox 97.5 F 78 16 103/73 100 01/02/19 00:55 01/02/19 00:55 01/02/19 00:55 01/02/19 00:55 01/02/19 00:55 Discharge - Discharge Clinical Impression: Dental caries, Pain, dental, Broken tooth injury Condition: Stable Disposition: HOME, SELF-CARE Instructions: Toothache ([facility]) Additional Instructions: FOLLOW UP WITH YOUR DENTIST SCHEDULED ON MONDAY. COMPLETE ANTIBIOTICS. PUSH FLUIDS. TAKE MEDICINES PRESCRIBED. Prescriptions: Amoxicillin Trihydrate [Amoxil 500 mg Capsule] 500 mg PO TID #30 capsule Hydrocodone/Acetaminophen [Monson 5-325 mg Tablet] 1 tab PO Q4H #6 tablet
[2019-01-02 01:09] VITALS: BP 103/73
== END 2019-01-02 00:55 | disposition home or self-care (01) ==
LOC: ER 19:49
DX: K02.9 Dental caries, unspecified (principal); K08.89 Other specified disorders of teeth and supporting structures; S02.5XXA Fracture of tooth (traumatic), initial encounter for closed fracture; X58.XXXA Exposure to other specified factors, initial encounter; F17.200 Nicotine dependence, unspecified, uncomplicated
CPT/HCPCS: 99282

== ENCOUNTER 2019-02-09 06:21 | Emergency (ER) | payer SELFPAY ==
[2019-02-09 06:28] VITALS: BP 113/74
[2019-02-09] MEDS ORDERED: CLINDAMYCIN HCL 150 MG CAPSULE PO ONE (09:33)
[2019-02-09] MEDS ORDERED: LIDOCAINE 2% VISCOUS SOLN 20 ML UDCUP PO ONE (09:33)
[2019-02-09] MEDS ORDERED: OXYCODONE-ACETAMINOPHEN 5-325 MG TABLET PO ONE (09:33)
--- NOTE | 2019-02-09 09:35 | ER Document Report ---
HPI - HPI Patient complains to provider of: toothache Time Seen by Provider: 02/09/19 09:23 Onset: Other - 4 days Onset/Duration: Persistent Quality of pain: Achy Pain Level: 4 Context: Patient reports breaking a tooth 2 weeks ago with pain starting 4 days ago. Patient complains of pain to left lower jaw. No fever, no facial swelling. Associated Symptoms: denies: Fever, Headache Exacerbated by: Denies Relieved by: Denies Similar symptoms previously: Yes Recently seen / treated by doctor: No - ROS ROS below otherwise negative: Yes Systems Reviewed and Negative: Yes All other systems reviewed and negative - CONSTITUTIONAL Constitutional: DENIES: Fever, Chills - EENT EENT: DENIES: Sore Throat, Ear Pain Notes: Dental pain - NEURO Neurology: DENIES: Headache - GASTROINTESTINAL Gastrointestinal: DENIES: Nausea, Patient vomiting - MUSCULOSKELETAL Musculoskeletal: DENIES: Extremity pain - DERM Skin Color: Normal Skin Problems: None Past Medical History - General Information source: Patient - Social History Smoking Status: Current Every Day Smoker Frequency of alcohol use: None Drug Abuse: None 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 Lives with: Family Family History: Reviewed & Not Pertinent Patient has suicidal ideation: No Patient has homicidal ideation: No Renal/ Medical History: Denies: Hx Peritoneal Dialysis Musculoskeletal Medical History: Reports Hx Musculoskeletal Deformity, Reports Hx Musculoskeletal Trauma Psychiatric Medical History: Reports: Hx Attention Deficit Hyperactivity Disorder, Hx Bipolar Disorder, Hx Schizophrenia Traumatic Medical History: Reports: Hx Fractures - Right ankle, boxer fracture to right hand, left forearm Past Surgical History: Reports: Other - lymphnode Removal - Immunizations Immunizations up to date: Yes Hx Diphtheria, Pertussis, Tetanus Vaccination: Yes - 09/24/2006 Vertical Provider Document - CONSTITUTIONAL Agree With Documented VS: Yes Exam Limitations: No Limitations General Appearance: WD/WN, No Apparent Distress - INFECTION CONTROL TRAVEL OUTSIDE OF THE [place] IN LAST 30 DAYS: No - HEENT HEENT: Atraumatic, Normocephalic. negative: Pharyngeal Exudate, Pharyngeal Tenderness, Pharyngeal Erythema, Tympanic Membrane Red, Tympanic Membrane Bulging Mouth Diagram: 1 - Tenderness, dental decay,with fracture, no abscess, no trismus, no gingival swelling - NECK Neck: Normal Inspection, Supple. negative: Lymphadenopathy-Left, Lymphadenopathy-Right - RESPIRATORY Respiratory: Breath Sounds Normal, No Respiratory Distress - CARDIOVASCULAR Cardiovascular: Regular Rate, Regular Rhythm - BACK Back: Normal Inspection - MUSCULOSKELETAL/EXTREMETIES Musculoskeletal/Extremeties: JOSIE GIFFORD - NEURO Level of Consciousness: Awake, Alert, Appropriate Motor/Sensory: No Motor Deficit - DERM Integumentary: Warm, Dry, No Rash Course - Vital Signs Vital signs: Temp Pulse Resp BP Pulse Ox 98.1 F 79 16 113/74 100 02/09/19 06:24 02/09/19 06:24 02/09/19 06:24 02/09/19 06:24 02/09/19 06:24 Discharge - Discharge Clinical Impression: Toothache Condition: Stable Disposition: HOME, SELF-CARE Instructions: Clindamycin ([facility]), Toothache ([facility]) Additional Instructions: Return immediately for any new or worsening symptoms Followup with your primary care provider, call tomorrow to make a followup appointment Follow-up with a dental care provider for further management Use the ibuprofen or the naproxen, not both medications together Prescriptions: Clindamycin HCl [Cleocin 300 mg Capsule] 300 mg PO TID #21 capsule Naproxen [Naprosyn 250 Nmg Tablet] 1 tab PO BID #14 tablet Forms: Smoking Cessation Education Referrals: [facility] [Provider Group] - Follow up as needed
== END 2019-02-09 09:53 | disposition home or self-care (01) ==
LOC: ER 06:21
DX: K02.9 Dental caries, unspecified (principal); K08.89 Other specified disorders of teeth and supporting structures; F17.200 Nicotine dependence, unspecified, uncomplicated
CPT/HCPCS: 99282; J3490

== ENCOUNTER 2019-06-09 15:49 | Emergency (ER) | payer SELFPAY ==
--- NOTE | 2019-06-09 16:15 | ER Document Report ---
HPI - HPI Patient complains to provider of: Right eyelid injury Time Seen by Provider: 06/09/19 16:11 Onset: This afternoon Onset/Duration: Sudden Quality of pain: Achy Pain Level: 2 Context: 24-year-old male presents emergency department with complaints of right eyelid laceration. Reports he was playing with his son and hit his head on the corner of the coffee table. Reports his vision is blurry. Reports his tetanus is up-to-date. Small laceration noted to the right upper eyelid. No active bleeding. Denies fever nausea vomiting diarrhea. Associated Symptoms: None Exacerbated by: Denies Relieved by: Denies Similar symptoms previously: No Recently seen / treated by doctor: No Past Medical History - General Information source: Patient - Social History Smoking Status: Current Every Day Smoker Chew tobacco use (# tins/day): No Frequency of alcohol use: None Drug Abuse: None Lives with: Family Family History: Reviewed & Not Pertinent Patient has suicidal ideation: No Patient has homicidal ideation: No Renal/ Medical History: Denies: Hx Peritoneal Dialysis Musculoskeletal Medical History: Reports Hx Musculoskeletal Deformity, Reports Hx Musculoskeletal Trauma Psychiatric Medical History: Reports: Hx Attention Deficit Hyperactivity Disorder, Hx Bipolar Disorder, Hx Schizophrenia Traumatic Medical History: Reports: Hx Fractures - Right ankle, boxer fracture to right hand, left forearm Past Surgical History: Reports: Other - lymphnode Removal - Immunizations Immunizations up to date: Yes Hx Diphtheria, Pertussis, Tetanus Vaccination: Yes - 09/24/2006 Vertical Provider Document - CONSTITUTIONAL Agree With Documented VS: Yes Exam Limitations: No Limitations General Appearance: WD/WN, No Apparent Distress - INFECTION CONTROL TRAVEL OUTSIDE OF THE [place] IN LAST 30 DAYS: No - HEENT HEENT: Atraumatic, Normocephalic, PERRLA. negative: Conjuctival Injection - NECK Neck: Supple - RESPIRATORY Respiratory: Breath Sounds Normal, No Respiratory Distress - MUSCULOSKELETAL/EXTREMETIES Musculoskeletal/Extremeties: JOSIE GIFFORD - NEURO Level of Consciousness: Awake, Alert, Appropriate Motor/Sensory: No Motor Deficit - DERM Integumentary: Warm, Dry Adult Front & Back Diagram: 1 - Approximately 8 mm linear vertical laceration to the right upper lid no active bleeding area well approximated. Course - Re-evaluation Re-evalutation: 06/09/19 17:44 Patient presents with laceration of the right upper eyelid after he fell and hit the coffee table. No change in LOC. X-rays negative for fracture. Orbit X-Ray 06/09/19 16:13 IMPRESSION: NO FOREIGN BODY OR FRACTURE OF THE FACIAL BONES. 06/09/19 19:03 After cleaning the eyelid well we discovered it was well approximated no need for closure with sutures or Dermabond. Patient was instructed on signs and symptoms of infection. Strict take Tylenol Motrin as indicated for pain. He verbalized understanding to all instructions. Dictation of this chart was performed using voice recognition software; therefore, there may be some unintended grammatical errors. - Vital Signs Vital signs: Temp Pulse Resp BP Pulse Ox 98.6 F 104 H 18 142/78 H 97 06/09/19 16:10 06/09/19 16:10 06/09/19 16:10 06/09/19 16:10 06/09/19 16:10 - Diagnostic Test Radiology reviewed: Image reviewed, Reports reviewed Discharge - Discharge Clinical Impression: right upper eyelid laceration Condition: Stable Disposition: HOME, SELF-CARE Additional Instructions: *You have been treated for right upper eyelid laceration The x-ray did not show an acute fracture. The site is well approximated and did not need to be closed by sutures or skin adhesive *Monitor the site for signs of infection such as increasing pain, redness, swelling, warmth *Follow up with a primary care provider within 1 week for recheck Take Tylenol or Motrin as indicated for pain *Return to ED for signs of infection, worsening condition, changes, needs, concerns Monitor your blood pressure. Your blood pressure was elevated today. This may be because you were anxious, in pain or because you need medication. It is important to follow up with your primary care provider for full evaluation. Forms: Elevated Blood Pressure
--- NOTE | 2019-06-09 17:07 | RADIOLOGY REPORT (SQ) ---
EXAM DESCRIPTION: ORBITS 4 COMPLETED DATE/TIME: 06/09/2019 4:52 pm REASON FOR STUDY: right upper eyelid injury COMPARISON: None. NUMBER OF VIEWS: Five view. TECHNIQUE: Images of the facial bones acquired. LIMITATIONS: None. FINDINGS: ORBITS: No fracture. No foreign body. SINUSES: No mucosal thickening. No air fluid levels. FACIAL BONES: No fracture. OTHER: No other significant finding. IMPRESSION: NO FOREIGN BODY OR FRACTURE OF THE FACIAL BONES. TECHNICAL DOCUMENTATION: JOB ID: [id number] [place]-72 2010 [employer]- All Rights Reserved Reading location - IP/workstation name: [email or web address]
[2019-06-09] MEDS ORDERED: ACETAMINOPHEN 325 MG TABLET PO ONE (18:49)
[2019-06-09 19:06] VITALS: BP 106/71
== END 2019-06-09 19:12 | disposition home or self-care (01) ==
LOC: ER 15:49
DX: S09.93XA Unspecified injury of face, initial encounter (principal); S01.111A Laceration without foreign body of right eyelid and periocular area, initial encounter; H53.8 Other visual disturbances; W22.03XA Walked into furniture, initial encounter; F17.200 Nicotine dependence, unspecified, uncomplicated
CPT/HCPCS: 70200; 99283